=== PATIENT | male | born 1980 | race Hispanic/Latino ===

== ENCOUNTER 2018-07-01 23:47 | Emergency (ER) | payer SELFPAY ==
[2018-07-01 23:57] VITALS: TEMP 99
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
[2018-07-02 01:26] LABS: URINE BACTERIA RARE (<OCC); URINE BILIRUBIN NEGATIVE (NEGATIVE); URINE BLOOD 1+ (NEGATIVE); URINE CLARITY Clear (Clear); URINE COLOR Straw (YELLOW); URINE GLUCOSE (UA) NORMAL (Normal); URINE LEUKOCYTE ESTERASE NEG Leu/uL (Negative); URINE PROTEIN NEGATIVE (NEGATIVE); URINE UROBILINOGEN NORMAL mg/dL (0.2-1.0)
[2018-07-02 01:48] LABS: BARBITURATES, UR NEGATIVE (NEGATIVE); BENZODIAZEPINES, UR NEGATIVE (NEGATIVE); OPIATES, UR NEGATIVE (NEGATIVE); PHENCYCLIDINE, UR NEGATIVE (NEGATIVE)
[2018-07-02 02:34] VITALS: BP 128/78; PULSE 88; RESP 20; O2SAT 97
== END 2018-07-02 02:33 | disposition home or self-care (01) ==
LOC: C.ER 23:47
DX: F41.9 Anxiety disorder, unspecified (principal)
CPT/HCPCS: 81001; 99284; G0480